=== PATIENT | female | born 1985 | race African-American/Black ===

== ENCOUNTER 2016-08-02 11:03 | Emergency (ER) | payer OTHER ==
[~2016-08-02] VITALS: Ht 170.2 cm; Wt 65.8 kg
[~2016-08-02 11:03] MED LIST: BENADRYL25 M3 PO; CLINDAMYCIN HC300 MG ORAL; DIFLUCAN100 MG ORAL; DIPHENHYDRAMINE25 M1 ORAL; IBUPROFEN600 MG ORAL; INDOCIN25 MG ORAL; KEFLEX500 MG ORAL; NITROFURANTOIN100 M2 ORAL; NKM; NORCO 5-325 TA1 EACH ORAL; PREDNISONE20 MG ORAL; PREDNISONE50 MG ORAL
[2016-08-02 11:14] VITALS: BP 127/63
[2016-08-02 12:13] VITALS: BP 95/69
[2016-08-02 12:23] LABS: BASOPHILS % (AUTO) 1.3 % (0.0-2.0); EOSINOPHILS % (AUTO) 1.3 % (0.0-3.0); MEAN CORPUSCULAR HEMOGLOBIN 31.1 PG (27.0-31.0); MEAN CORPUSCULAR HGB CONC 34.9 G/DL (32.0-36.0); MEAN CORPUSCULAR VOLUME 89 FL (80-99); MEAN PLATELET VOLUME 10.8 FL (6.5-10.1); MONOCYTES % (AUTO) 7.6 % (1.0-10.0); NEUTROPHILS % (AUTO) 57.8 % (45.0-75.0); PLATELET COUNT 168 K/UL (150-450); RED BLOOD COUNT 4.25 M/UL (4.20-5.40); RED CELL DISTRIBUTION WIDTH 11.4 % (11.6-14.8); WHITE BLOOD COUNT 4.9 K/UL (4.8-10.8)
[2016-08-02 12:23] LABS: APPEARANCE,URINE CLEAR; KETONES,URINE NEGATIVE (NEGATIVE); LEUKOCYTE ESTERASE ,URINE NEGATIVE (NEGATIVE); NITRITE,URINE NEGATIVE (NEGATIVE); PH,URINE 6 (4.5-8.0); PROTEIN,URINE NEGATIVE (NEGATIVE); UROBILINOGEN,URINE NORMAL MG/DL (0.0-1.0)
[2016-08-02 12:40] LABS: BACTERIA,URINE FEW /HPF; MUCUS,URINE FEW /LPF (NONE/OCC); SQUAMOUS EPITHELIAL CELL,UR FEW /LPF (NONE/OCC); WBC,URINE 0-2 /HPF (0 - 2)
[2016-08-02 12:44] LABS: INR 1.1 (0.9-1.1); PROTHROMBIN TIME 11.4 SEC (9.30-11.50)
[2016-08-02 12:48] LABS: ALANINE AMINOTRANSFERASE 11 U/L (3-33); ALBUMIN/GLOBULIN RATIO 1.3 (1.0-2.7); ANION GAP 15 (5-15); ASPARTATE AMINO TRANSFERASE 17 U/L (5-40); CALCIUM 8.9 mg/dL (8.6-10.2); CARBON DIOXIDE 26 mEQ/L (20-30); CHLORIDE 99 mEQ/L (98-107); CREATININE 0.9 mg/dL (0.5-0.9); GLOMERULAR FILTRATION RATE > 60 mL/min (>60); HEMOLYSIS 4; LIPASE 12 U/L (< 60); POTASSIUM 4.1 mEQ/L (3.4-4.9); SODIUM 140 mEQ/L (135-145); TOTAL PROTEIN 7.5 g/dL (6.6-8.7)
[2016-08-02 13:37] VITALS: BP 108/57
--- NOTE | 2016-08-02 15:36 | Emergency Room Report ---
History of Present Illness General Chief Complaint: Vaginal Source: Patient Present Illness HPI Patient presents with heavy vaginal bleeding. Menses started yesterday. Some minor cramping 2/10, suprapubic, non-radiating, intermittent. She used 5 tampons since 9 am. Passing some clots. No fevers. No discharge. Menses normal timing for her. No dysuria. No dizziness. No sex since last January. Had been on Depo prior to this. No control since then. No change in medications. No blood thinners. Great grandmother with fibroid. Grandmother noted "neck fullness" this am and questioned thyroid issues. Recent stress with issues with job. No chest pain, palpitations, dyspnea. Allergies: Coded Allergies: No Known Allergies (Unverified , 05/20/13) Patient History Past Medical History: see triage record Social History Narrative stress with job Last Menstrual Period: now Now: No Reviewed Nursing Documentation: PMH: Agreed, PSxH: Agreed Nursing Documentation-PMH Past Medical History: No History, Except For Hx Hypertension: No Hx Neurological Problems: No - Achiles Tendon repair op in 2012 Review of Systems All Other Systems: negative except mentioned in HPI Physical Exam Vital Signs Date Time Temp Pulse Resp B/P Pulse Ox O2 Delivery O2 Flow Rate FiO2 08/02/16 11:14 98.8 85 18 127/63 98 Room Air Sp02 EP Interpretation: reviewed, normal General Appearance: well appearing, no apparent distress, GCS 15 Head: normocephalic Eyes: bilateral eye PERRL, bilateral eye normal inspection ENT: moist mucus membranes Neck: supple Respiratory: lungs clear, normal breath sounds Cardiovascular #1: regular rate, rhythm Cardiovascular #2: 2+ radial (R) Gastrointestinal: normal inspection, normal bowel sounds, non tender, no mass, non-distended Genitourinary: no CVA tenderness, deferred - for pelvic u/s Musculoskeletal: back normal, gait/station normal, normal range of motion Neurologic: alert, oriented x3, grossly normal Psychiatric: mood/affect normal Skin: normal inspection, warm/dry Medical Decision Making Diagnostic Impression: Primary Impression: Menorrhagia Qualified Codes: N92.0 - Excessive and frequent menstruation with regular cycle ER Course Patient with heavy vaginal bleeding. DDx: , fibroid, hormonal imbalance, stress, platelet or coagulation abnormality amongst others. Indication for labs and ultrasound. Exam against PID. Labs unremarkable. Ultrasound: no fibroid, min fluid cul de sac. Discussed findings. Suggested motrin as might decrease uterine bleeding. Also advised patient of need for prompt re-evaluation with welt cutter as if bleeding continues, provera might be indicated. No medical emergency at this time. Patient stable for outpatient treatment and observation. Laboratory Tests Test 08/02/16 11:30 08/02/16 12:09 Urine Color Pale yellow Urine Appearance Clear Urine pH 6 (4.5-8.0) Urine Specific [place] 1.015 (1.005-1.035) Urine Protein Negative (NEGATIVE) Urine Glucose (UA) Negative (NEGATIVE) Urine Ketones Negative (NEGATIVE) Urine Occult Blood 4+ (NEGATIVE) H Urine Nitrite Negative (NEGATIVE) Urine Bilirubin Negative (NEGATIVE) Urine Urobilinogen Normal MG/DL (0.0-1.0) Urine Leukocyte Esterase Negative (NEGATIVE) Urine RBC 5-10 /HPF (0 - 2) H Urine WBC 0-2 /HPF (0 - 2) Urine Squamous Epithelial Cells Few /LPF (NONE/OCC) Urine Bacteria Few /HPF (NONE) Urine Mucus Few /LPF (NONE/OCC) H Urine HCG, Qualitative Negative White Blood Count 4.9 K/UL (4.8-10.8) Red Blood Count 4.25 M/UL (4.20-5.40) Hemoglobin 13.2 G/DL (12.0-16.0) Hematocrit 37.8 % (37.0-47.0) Mean Corpuscular Volume 89 FL (80-99) Mean Corpuscular Hemoglobin 31.1 PG (27.0-31.0) H Mean Corpuscular Hemoglobin Concent 34.9 G/DL (32.0-36.0) Red Cell Distribution Width 11.4 % (11.6-14.8) L Platelet Count 168 K/UL (150-450) Mean Platelet Volume 10.8 FL (6.5-10.1) H Neutrophils (%) (Auto) 57.8 % (45.0-75.0) Lymphocytes (%) (Auto) 32.0 % (20.0-45.0) Monocytes (%) (Auto) 7.6 % (1.0-10.0) Eosinophils (%) (Auto) 1.3 % (0.0-3.0) Basophils (%) (Auto) 1.3 % (0.0-2.0) Prothrombin Time 11.4 SEC (9.30-11.50) Prothrombin Time INR 1.1 (0.9-1.1) PTT 30 SEC (23-33) Sodium Level 140 mEQ/L (135-145) Potassium Level 4.1 mEQ/L (3.4-4.9) Chloride Level 99 mEQ/L (98-107) Carbon Dioxide Level 26 mEQ/L (20-30) Anion Gap 15 (5-15) Blood Urea Nitrogen 7 mg/dL (7-23) Creatinine 0.9 mg/dL (0.5-0.9) Estimate Glomerular Filtration Rate > 60 mL/min (>60) Glucose Level 93 mg/dL (74-106) Calcium Level 8.9 mg/dL (8.6-10.2) Total Bilirubin 0.4 mg/dL (0.0-1.2) Aspartate Amino Transferase (AST) 17 U/L (5-40) Alanine Aminotransferase (ALT) 11 U/L (3-33) Alkaline Phosphatase 54 U/L (35-104) Total Protein 7.5 g/dL (6.6-8.7) Albumin 4.3 g/dL (3.5-5.2) Globulin 3.2 g/dL Albumin/Globulin Ratio 1.3 (1.0-2.7) Lipase 12 U/L (< 60) Thyroid Stimulating Hormone (TSH) 0.832 uIU/mL (0.300-4.500) CT/MRI/US Diagnostic Results CT/MRI/US Diagnostic Results : Imaging Test Ordered: pelvic u/s Impression no fibroid, no adnexal masses, some fluid in cul de sac (verbal report) Impression: No acute abnormality Free fluid with debris. Most likely physiologic but component of blood within the fluid cannot be ruled out Negative for adnexal mass Last Vital Signs Date Time Temp Pulse Resp B/P Pulse Ox O2 Delivery O2 Flow Rate FiO2 08/02/16 15:59 72 16 109/51 100 Room Air 08/02/16 13:37 98.7 Status: improved Disposition: HOME, SELF-CARE Condition: Stable Scripts Ibuprofen* (MOTRIN*) 600 Mg Tablet 600 MG ORAL Q6H Y for For Pain, #14 TAB Prov: Carlos Eduardo Shaw M.D. 08/02/16 Referrals: [facility] (PCP) Carlos Eduardo Shaw M.D. Aug 02, 2016 15:36
[2016-08-02] MEDS ORDERED: IBUPROFEN600 MG ORAL (15:39)
[2016-08-02 15:59] VITALS: BP 109/51
--- NOTE | 2016-08-04 15:08 | Diagnostic Imaging Report ---
Indication: Pelvic pain, heavy menstrual period Technique: Transabdominal and transvaginal imaging Comparison: None Findings: Uterus measures 7.9 cm length by 3.7 cm AP. It is retroverted. Endometrium measures 6 mm thick. No myometrial abnormality. Free fluid with debris is seen in the cul-de-sac. The right ovary measures 4.2 cm in length. The left ovary measures 3.3 cm in length. No adnexal mass. Impression: No acute abnormality Free fluid with debris. Most likely physiologic but component of blood within the fluid cannot be ruled out Negative for adnexal mass
== END 2016-08-02 16:13 | disposition home or self-care (01) ==
LOC: EMR 12:00
DX: N92.0 Excessive and frequent menstruation with regular cycle (principal)
CPT/HCPCS: 36415; 76830; 76856; 80053; 81003; 81025; 83690; 84443; 85025; 85610; 85730; 99284